=== PATIENT | female | born 1975 | race African-American/Black ===

== ENCOUNTER 2024-12-26 05:54 | Emergency (ER) | payer BC ==
[~2024-12-26] VITALS: Ht 165.1 cm; Wt 73.0 kg
[2024-12-26 05:58] VITALS: O2SAT 97
[2024-12-26 06:13] VITALS: TEMP 36.9; O2SAT 100
[2024-12-26 06:15] VITALS: BP 133/57; PULSE 52; RESP 16
[2024-12-26] MEDS: OXYCODONE HCL/ACETAMINOPHEN 5/325MG TABLET PO ONE (06:15)
[2024-12-26] MEDS: IBUPROFEN 600MG TABLET PO ONE (06:15)
[2024-12-26] MEDS ORDERED: TOPUD PO (07:19)
== END 2024-12-26 08:11 | disposition home or self-care (01) ==
LOC: ER 05:54
DX: M54.40 Lumbago with sciatica, unspecified side (principal); F31.9 Bipolar disorder, unspecified; Z88.1 Allergy status to other antibiotic agents
CPT/HCPCS: 99283